=== PATIENT | female | born 1970 | race African-American/Black ===

== ENCOUNTER 2017-02-17 14:07 | Emergency (ER) | payer OTHER ==
[~2017-02-17] VITALS: Ht 160 cm; Wt 113.6 kg
[2017-02-17 14:23] LABS: GLUCOSE,POINT OF CARE 375 MG/DL (70-110)
[2017-02-17] MEDS ORDERED: ACETAMINOPHEN/CODEINE 300-30 MG TABLET PO ONE (15:15)
[2017-02-17 16:17] VITALS: BP 149/87
== END 2017-02-17 16:32 | disposition home or self-care (01) ==
LOC: EMS 14:09
DX: S46.912A Strain of unspecified muscle, fascia and tendon at shoulder and upper arm level, left arm, initial encounter (principal); E11.9 Type 2 diabetes mellitus without complications; E78.00 Pure hypercholesterolemia, unspecified; I10 Essential (primary) hypertension; X58.XXXA Exposure to other specified factors, initial encounter; Y93.89 Activity, other specified; Y92.89 Other specified places as the place of occurrence of the external cause; Y99.8 Other external cause status
CPT/HCPCS: 82962; 93005; 99283

== ENCOUNTER 2017-03-25 19:25 | Emergency (ER) | payer OTHER ==
[~2017-03-25] VITALS: Ht 160 cm; Wt 118.0 kg
[2017-03-25] MEDS ORDERED: LISI-662 PO (19:47)
[2017-03-25] MEDS ORDERED: METF500T4 PO (19:47)
[2017-03-25 19:56] LABS: GLUCOSE,POINT OF CARE 232 MG/DL (70-110)
[2017-03-25 20:11] LABS: ANION GAP 5 mmol/L (8-16); CALCIUM, TOTAL 9.1 mg/dL (8.8-10.5); CARBON DIOXIDE 32 mmol/L (22-29); CHLORIDE 98 mmol/L (98-107); CREATININE 0.96 mg/dL (0.60-1.30); GLOMERULAR FILTR. RATE CALC > 60 mL/min (>60); POTASSIUM 3.5 mmol/L (3.5-5.1); SODIUM SERUM 135 mmol/L (136-145); UREA NITROGEN, BLOOD 13 mg/dL (7-18)
[2017-03-25 20:17] LABS: ALANINE AMINOTRANSFERASE 20 U/L (12-78); ALBUMIN 3.2 g/dL (3.4-5.0); ASPARTATE AMINOTRANSFERASE 20 U/L (15-37); BILIRUBIN,TOTAL 0.2 mg/dL (0.1-1.0); TOTAL PROTEIN, SERUM 6.9 g/dL (6.4-8.2)
[2017-03-25 20:28] LABS: BASOPHILS % (AUTO) 0.6 % (0.0-2.0); EOSINOPHILS % (AUTO) 2.4 % (1.0-6.0); HEMATOCRIT 32.9 % (36-46); HEMOGLOBIN 11.1 g/dL (12.0-16.0); LYMPHOCYTES # (AUTO) 1.7 K/uL (1.0-4.8); LYMPHOCYTES % (AUTO) 22.8 % (22.0-44.0); MEAN CORPUSCULAR HEMOGLOBIN 26.9 pg (26.0-34.0); MEAN CORPUSCULAR HGB CONC 33.7 G/dL (31.0-37.0); MEAN CORPUSCULAR VOLUME 80 fL (80-100); MONOCYTES # (AUTO) 0.3 K/uL (0.1-1.0); MONOCYTES % (AUTO) 4.3 % (2.0-9.0); NEUTROPHILS # (AUTO) 5.1 K/uL (1.8-7.7); NEUTROPHILS % (AUTO) 69.9 % (40.0-70.0); PLATELET COUNT (AUTO) 351 K/uL (150-450); RED BLOOD CELL COUNT(AUTO) 4.13 MIL/uL (4.00-5.20); WHITE BLOOD COUNT (AUTO) 7.3 K/uL (4.5-11.0)
[2017-03-25 20:36] LABS: APPEARANCE,URINE TURBID (CLEAR); GLUCOSE, URINE (UA) 100 mg/dL (NEGATIVE); KETONES,URINE 40 mg/dL (NEGATIVE); LEUKOCYTE ESTERASE ,URINE LARGE (NEGATIVE); OCCULT BLOOD,URINE LARGE (NEGATIVE); PROTEIN,URINE SEE CONFIRM (NEGATIVE)
[2017-03-25 21:09] LABS: ADD UA MICROSCOPIC YES; RBC,URINE Full Field /HPF (0-2); SULFOSALICYLIC ACID,URINE 3+ (Negative)
[2017-03-25 21:10] LABS: WBC,URINE 51-100 /HPF (0-5)
[2017-03-25 21:25] VITALS: BP 144/68
[2017-03-25] MEDS ORDERED: CeFAZolin 1 GM/DEXTROSE 50 ML IV ONE (21:30)
== END 2017-03-25 22:12 | disposition home or self-care (01) ==
LOC: EMS 19:29
DX: N39.0 Urinary tract infection, site not specified (principal); E11.9 Type 2 diabetes mellitus without complications; E78.00 Pure hypercholesterolemia, unspecified; I10 Essential (primary) hypertension
CPT/HCPCS: 82962; 87086; 99284

== ENCOUNTER 2017-04-08 14:58 | Emergency (ER) | payer OTHER ==
[~2017-04-08] VITALS: Ht 160 cm; Wt 113.6 kg
[~2017-04-08 14:58] MED LIST: LISI-662 PO; METF500T4 PO
[2017-04-08 15:22] LABS: GLUCOSE,POINT OF CARE 232 MG/DL (70-110)
[2017-04-08 16:21] VITALS: BP 134/72
[2017-04-08] MEDS ORDERED: KETOROLAC TROMETHAMINE 30 MG/ML VIAL IM ONE (16:30)
== END 2017-04-08 16:54 | disposition home or self-care (01) ==
LOC: EMS 15:03
DX: S46.911A Strain of unspecified muscle, fascia and tendon at shoulder and upper arm level, right arm, initial encounter (principal); S86.911A Strain of unspecified muscle(s) and tendon(s) at lower leg level, right leg, initial encounter; E11.9 Type 2 diabetes mellitus without complications; I10 Essential (primary) hypertension; E78.00 Pure hypercholesterolemia, unspecified; X58.XXXA Exposure to other specified factors, initial encounter; Y93.89 Activity, other specified; Y92.89 Other specified places as the place of occurrence of the external cause; Y99.8 Other external cause status
CPT/HCPCS: 82962; 96372; 99283; J1885

== ENCOUNTER 2017-07-07 22:14 | Emergency (ER) | payer OTHER ==
[~2017-07-07] VITALS: Ht 160 cm; Wt 113.2 kg
[2017-07-07] MEDS ORDERED: METF500T4 PO (22:25)
[2017-07-07] MEDS ORDERED: INSLAN SQ (22:25)
[2017-07-07] MEDS ORDERED: SITA100 PO (22:25)
[2017-07-07] MEDS ORDERED: GLIM2 PO (22:25)
[2017-07-07 22:27] LABS: GLUCOSE,POINT OF CARE 429 MG/DL (70-110)
[2017-07-07 23:03] LABS: EOSINOPHILS % (AUTO) 2.4 % (1.0-6.0); HEMATOCRIT 38.1 % (36-46); HEMOGLOBIN 12.4 g/dL (12.0-16.0); LYMPHOCYTES % (AUTO) 31.8 % (22.0-44.0); MEAN CORPUSCULAR HEMOGLOBIN 25.2 pg (26.0-34.0); MEAN CORPUSCULAR HGB CONC 32.6 G/dL (31.0-37.0); MEAN CORPUSCULAR VOLUME 77 fL (80-100); MONOCYTES # (AUTO) 0.3 K/uL (0.1-1.0); MONOCYTES % (AUTO) 4.9 % (2.0-9.0); NEUTROPHILS # (AUTO) 3.8 K/uL (1.8-7.7); NEUTROPHILS % (AUTO) 59.9 % (40.0-70.0); PLATELET COUNT (AUTO) 347 K/uL (150-450); RED BLOOD CELL COUNT(AUTO) 4.92 MIL/uL (4.00-5.20)
[2017-07-07 23:13] LABS: ALANINE AMINOTRANSFERASE 15 U/L (12-78); ALBUMIN 3.3 g/dL (3.4-5.0); ALKALINE PHOSPHATASE 107 U/L (46-116); ANION GAP 10 mmol/L (8-16); ASPARTATE AMINOTRANSFERASE 19 U/L (15-37); BILIRUBIN,TOTAL 0.2 mg/dL (0.1-1.0); CALCIUM, TOTAL 9.2 mg/dL (8.8-10.5); CARBON DIOXIDE 28 mmol/L (22-29); CHLORIDE 94 mmol/L (98-107); CREATININE 0.95 mg/dL (0.60-1.30); GLOMERULAR FILTR. RATE CALC > 60 mL/min (>60); SODIUM SERUM 132 mmol/L (136-145); TOTAL PROTEIN, SERUM 7.7 g/dL (6.4-8.2); UREA NITROGEN, BLOOD 23 mg/dL (7-18)
[2017-07-07 23:22] LABS: GLUCOSE,RANDOM 409 mg/dL (70-110)
[2017-07-07] MEDS ORDERED: SODIUM CHLORIDE 0.9% 1,000 ML IV ONE (23:45)
[2017-07-07] MEDS ORDERED: INSULIN REGULAR, HUMAN 100 UNITS/ML IVP ONE (23:45)
[2017-07-07] MEDS ORDERED: ONDANSETRON HCL 4 MG/2 ML VIAL IVP ONE (23:45)
[2017-07-07] MEDS ORDERED: KETOROLAC TROMETHAMINE 30 MG/ML VIAL IVP ONE (23:45)
[2017-07-08 01:12] LABS: GLUCOSE,POINT OF CARE 262 MG/DL (70-110)
[2017-07-08 01:27] VITALS: BP 132/89
== END 2017-07-08 01:30 | disposition home or self-care (01) ==
LOC: EMS 22:17
DX: E11.65 Type 2 diabetes mellitus with hyperglycemia (principal); E87.1 Hypo-osmolality and hyponatremia; R19.7 Diarrhea, unspecified; E78.00 Pure hypercholesterolemia, unspecified; I10 Essential (primary) hypertension; Z90.49 Acquired absence of other specified parts of digestive tract; Z91.14 Patient's other noncompliance with medication regimen; Z98.890 Other specified postprocedural states; Z79.4 Long term (current) use of insulin; Z79.899 Other long term (current) drug therapy
CPT/HCPCS: 36415; 80053; 82962; 84703; 85025; 96361; 96374; 96375; 99284; J1815; J1885; J2405; J7030

== ENCOUNTER 2017-08-02 13:31 | Emergency (ER) | payer OTHER ==
[~2017-08-02] VITALS: Ht 160 cm; Wt 117.3 kg
[~2017-08-02 13:31] MED LIST changes: +GLIM2 PO; +INSLAN SQ; +SITA100 PO
[2017-08-02 14:23] LABS: GLUCOSE,POINT OF CARE 278 MG/DL (70-110)
[2017-08-02] MEDS ORDERED: KETOROLAC TROMETHAMINE 30 MG/ML VIAL IVP ONE (14:45)
[2017-08-02] MEDS ORDERED: ONDANSETRON HCL 4 MG/2 ML VIAL IVP ONE (14:45)
[2017-08-02] MEDS ORDERED: SODIUM CHLORIDE 0.9% 1,000 ML IV ONE (14:45)
[2017-08-02 15:24] VITALS: BP 161/98
[2017-08-02 15:32] LABS: BASOPHILS % (AUTO) 0.8 % (0.0-2.0); EOSINOPHILS % (AUTO) 2.5 % (1.0-6.0); HEMATOCRIT 35.4 % (36-46); HEMOGLOBIN 11.4 g/dL (12.0-16.0); LYMPHOCYTES # (AUTO) 1.4 K/uL (1.0-4.8); LYMPHOCYTES % (AUTO) 21.8 % (22.0-44.0); MEAN CORPUSCULAR HEMOGLOBIN 25.5 pg (26.0-34.0); MEAN CORPUSCULAR HGB CONC 32.2 G/dL (31.0-37.0); MEAN CORPUSCULAR VOLUME 79 fL (80-100); MONOCYTES # (AUTO) 0.3 K/uL (0.1-1.0); MONOCYTES % (AUTO) 4.8 % (2.0-9.0); NEUTROPHILS # (AUTO) 4.6 K/uL (1.8-7.7); NEUTROPHILS % (AUTO) 70.1 % (40.0-70.0); PLATELET COUNT (AUTO) 343 K/uL (150-450); RED BLOOD CELL COUNT(AUTO) 4.47 MIL/uL (4.00-5.20); RED CELL DISTRIBUTION WIDTH 18.8 % (11.5-14.5)
[2017-08-02 15:52] LABS: ANION GAP 10 mmol/L (8-16); CALCIUM, TOTAL 8.4 mg/dL (8.8-10.5); CARBON DIOXIDE 27 mmol/L (22-29); CHLORIDE 105 mmol/L (98-107); CREATININE 0.92 mg/dL (0.60-1.30); GLOMERULAR FILTR. RATE CALC > 60 mL/min (>60); GLUCOSE,RANDOM 278 mg/dL (70-110); POTASSIUM 3.7 mmol/L (3.5-5.1); SODIUM SERUM 142 mmol/L (136-145); UREA NITROGEN, BLOOD 14 mg/dL (7-18)
[2017-08-02 15:53] LABS: ALANINE AMINOTRANSFERASE 20 U/L (12-78); ALBUMIN 2.9 g/dL (3.4-5.0); ALKALINE PHOSPHATASE 81 U/L (46-116); ASPARTATE AMINOTRANSFERASE 19 U/L (15-37); BILIRUBIN,TOTAL 0.2 mg/dL (0.1-1.0); TOTAL PROTEIN, SERUM 6.5 g/dL (6.4-8.2)
== END 2017-08-02 16:54 | disposition home or self-care (01) ==
LOC: EMS 13:32
DX: N94.6 Dysmenorrhea, unspecified (principal); E11.9 Type 2 diabetes mellitus without complications; E78.00 Pure hypercholesterolemia, unspecified; I10 Essential (primary) hypertension; Z79.4 Long term (current) use of insulin
CPT/HCPCS: 36415; 80053; 82962; 83690; 84703; 85025; 96374; 96375; 99284; J1885; J2405; J7030

== ENCOUNTER 2017-08-21 18:39 | Emergency (ER) | payer OTHER ==
[~2017-08-21] VITALS: Ht 160 cm; Wt 112.3 kg
[2017-08-21 19:02] LABS: GLUCOSE,POINT OF CARE 149 MG/DL (70-110)
[2017-08-21] MEDS ORDERED: CYCLOBENZAPRINE HCL 10 MG TABLET PO ONE (19:45)
[2017-08-21] MEDS ORDERED: KETOROLAC TROMETHAMINE 60 MG/2 ML VIAL IM ONE (19:45)
[2017-08-21 20:38] VITALS: BP 144/90
== END 2017-08-21 20:41 | disposition home or self-care (01) ==
LOC: EMS 18:40
DX: S46.812A Strain of other muscles, fascia and tendons at shoulder and upper arm level, left arm, initial encounter (principal); I10 Essential (primary) hypertension; E11.9 Type 2 diabetes mellitus without complications; E78.00 Pure hypercholesterolemia, unspecified; X58.XXXA Exposure to other specified factors, initial encounter; Y93.89 Activity, other specified; Y92.89 Other specified places as the place of occurrence of the external cause; Y99.8 Other external cause status
CPT/HCPCS: 82962; 96372; 99283; J1885

== ENCOUNTER 2017-09-20 10:22 | Emergency (ER) | payer OTHER ==
[~2017-09-20] VITALS: Ht 160 cm; Wt 113.6 kg
[~2017-09-20 10:22] MED LIST changes: -METF500T4 PO; +METF500T6 PO
[2017-09-20 10:33] LABS: GLUCOSE,POINT OF CARE 397 MG/DL (70-110)
[2017-09-20 11:51] LABS: BASOPHILS % (AUTO) 0.7 % (0.0-2.0); EOSINOPHILS % (AUTO) 2.4 % (1.0-6.0); HEMATOCRIT 38.6 % (36-46); HEMOGLOBIN 12.6 g/dL (12.0-16.0); LYMPHOCYTES # (AUTO) 1.3 K/uL (1.0-4.8); LYMPHOCYTES % (AUTO) 22.2 % (22.0-44.0); MEAN CORPUSCULAR HEMOGLOBIN 26.2 pg (26.0-34.0); MEAN CORPUSCULAR HGB CONC 32.7 G/dL (31.0-37.0); MEAN CORPUSCULAR VOLUME 80 fL (80-100); MONOCYTES # (AUTO) 0.3 K/uL (0.1-1.0); MONOCYTES % (AUTO) 4.6 % (2.0-9.0); NEUTROPHILS # (AUTO) 4.2 K/uL (1.8-7.7); NEUTROPHILS % (AUTO) 70.1 % (40.0-70.0); PLATELET COUNT (AUTO) 301 K/uL (150-450); RED BLOOD CELL COUNT(AUTO) 4.82 MIL/uL (4.00-5.20); RED CELL DISTRIBUTION WIDTH 16.5 % (11.5-14.5)
[2017-09-20] MEDS ORDERED: SODIUM CHLORIDE 0.9% 1,000 ML IV ONE (12:00)
[2017-09-20 12:04] LABS: ANION GAP 8 mmol/L (8-16); CARBON DIOXIDE 29 mmol/L (22-29); CHLORIDE 100 mmol/L (98-107); POTASSIUM 5.1 mmol/L (3.5-5.1); SODIUM SERUM 137 mmol/L (136-145); UREA NITROGEN, BLOOD 11 mg/dL (7-18)
[2017-09-20 12:05] LABS: ALANINE AMINOTRANSFERASE 20 U/L (12-78); ALBUMIN 3.1 g/dL (3.4-5.0); ALKALINE PHOSPHATASE 118 U/L (46-116); ASPARTATE AMINOTRANSFERASE 33 U/L (15-37); BILIRUBIN,TOTAL 0.3 mg/dL (0.1-1.0); CALCIUM, TOTAL 8.7 mg/dL (8.8-10.5); GLOMERULAR FILTR. RATE CALC > 60 mL/min (>60); TOTAL PROTEIN, SERUM 7.4 g/dL (6.4-8.2)
[2017-09-20 12:08] LABS: GLUCOSE,RANDOM 408 mg/dL (70-110)
[2017-09-20 12:20] LABS: BILIRUBIN,URINE NEGATIVE (NEGATIVE); GLUCOSE, URINE (UA) >=1000 mg/dL (NEGATIVE); KETONES,URINE NEGATIVE (NEGATIVE); LEUKOCYTE ESTERASE ,URINE NEGATIVE (NEGATIVE); NITRATE,URINE NEGATIVE (NEGATIVE); PH,URINE 5.5 (5.0-8.0); PROTEIN,URINE NEGATIVE (NEGATIVE); UROBILINOGEN,URINE 0.2 mg/dL (<=1.0)
[2017-09-20 12:28] LABS: APPEARANCE,URINE HAZY (CLEAR); OCCULT BLOOD,URINE SMALL (NEGATIVE)
[2017-09-20 12:29] LABS: BACTERIA,URINE Moderate /HPF (None Seen); SQUAMOUS EPITHELIAL CELL,UR Moderate /LPF (None Seen); WBC,URINE 0-2 /HPF (0-5)
[2017-09-20] MEDS ORDERED: INSULIN REGULAR, HUMAN 100 UNITS/ML IVP ONE (12:30)
[2017-09-20] MEDS ORDERED: CIPROFLOXACIN HCL 250 MG TABLET PO ONE (12:45)
[2017-09-20 13:07] LABS: GLUCOSE,POINT OF CARE 202 MG/DL (70-110)
[2017-09-20 14:17] VITALS: BP 177/94
== END 2017-09-20 14:52 | disposition home or self-care (01) ==
LOC: EMS 10:24
DX: N39.0 Urinary tract infection, site not specified (principal); N89.8 Other specified noninflammatory disorders of vagina; E11.65 Type 2 diabetes mellitus with hyperglycemia; E78.00 Pure hypercholesterolemia, unspecified; I10 Essential (primary) hypertension; Z79.4 Long term (current) use of insulin
CPT/HCPCS: 36415; 80053; 81001; 82962; 84703; 85025; 87077; 87086; 87186; 96361; 96374; 99284; J1815; J7030

== ENCOUNTER 2017-10-29 00:30 | Emergency (ER) | payer OTHER ==
[~2017-10-29] VITALS: Ht 157.5 cm; Wt 115.0 kg
[2017-10-29 00:48] LABS: GLUCOSE,POINT OF CARE 207 MG/DL (70-110)
[2017-10-29 01:24] LABS: EOSINOPHILS % (AUTO) 2.4 % (1.0-6.0); HEMATOCRIT 36.9 % (36-46); HEMOGLOBIN 12.1 g/dL (12.0-16.0); LYMPHOCYTES # (AUTO) 1.7 K/uL (1.0-4.8); LYMPHOCYTES % (AUTO) 22.4 % (22.0-44.0); MEAN CORPUSCULAR HEMOGLOBIN 26.1 pg (26.0-34.0); MEAN CORPUSCULAR HGB CONC 32.8 G/dL (31.0-37.0); MEAN CORPUSCULAR VOLUME 80 fL (80-100); MONOCYTES # (AUTO) 0.4 K/uL (0.1-1.0); MONOCYTES % (AUTO) 4.9 % (2.0-9.0); NEUTROPHILS # (AUTO) 5.1 K/uL (1.8-7.7); NEUTROPHILS % (AUTO) 69.3 % (40.0-70.0); PLATELET COUNT (AUTO) 363 K/uL (150-450); RED BLOOD CELL COUNT(AUTO) 4.63 MIL/uL (4.00-5.20); RED CELL DISTRIBUTION WIDTH 15.9 % (11.5-14.5)
[2017-10-29 01:27] LABS: ANION GAP 6 mmol/L (8-16); CALCIUM, TOTAL 8.7 mg/dL (8.8-10.5); CARBON DIOXIDE 31 mmol/L (22-29); CHLORIDE 101 mmol/L (98-107); CREATININE 0.94 mg/dL (0.60-1.30); GLOMERULAR FILTR. RATE CALC > 60 mL/min (>60); GLUCOSE,RANDOM 235 mg/dL (70-110); POTASSIUM 3.6 mmol/L (3.5-5.1); SODIUM SERUM 138 mmol/L (136-145); UREA NITROGEN, BLOOD 12 mg/dL (7-18)
[2017-10-29 01:34] LABS: ALANINE AMINOTRANSFERASE 16 U/L (12-78); ALBUMIN 3.3 g/dL (3.4-5.0); ALKALINE PHOSPHATASE 103 U/L (46-116); ASPARTATE AMINOTRANSFERASE 12 U/L (15-37); BILIRUBIN,TOTAL 0.2 mg/dL (0.1-1.0); LIPASE 234 U/L (73-393); TOTAL PROTEIN, SERUM 7.2 g/dL (6.4-8.2)
[2017-10-29 01:37] LABS: APPEARANCE,URINE CLOUDY (CLEAR); BILIRUBIN,URINE NEGATIVE (NEGATIVE); GLUCOSE, URINE (UA) 250 mg/dL (NEGATIVE); KETONES,URINE TRACE mg/dL (NEGATIVE); LEUKOCYTE ESTERASE ,URINE NEGATIVE (NEGATIVE); NITRATE,URINE NEGATIVE (NEGATIVE); OCCULT BLOOD,URINE LARGE (NEGATIVE); PROTEIN,URINE POS 1+ (NEGATIVE); UROBILINOGEN,URINE 0.2 mg/dL (<=1.0)
[2017-10-29 01:50] LABS: BACTERIA,URINE Rare /HPF (None Seen); SQUAMOUS EPITHELIAL CELL,UR Few /LPF (None Seen); WBC,URINE 0-2 /HPF (0-5)
[2017-10-29 03:24] LABS: GLUCOSE,POINT OF CARE 239 MG/DL (70-110)
[2017-10-29] MEDS ORDERED: KETOROLAC TROMETHAMINE 60 MG/2 ML VIAL IM ONE (03:45)
[2017-10-29] MEDS ORDERED: CIPROFLOXACIN HCL 250 MG TABLET PO ONE (03:45)
[2017-10-29] MEDS ORDERED: ONDANSETRON HCL 4 MG TABLET PO ONE (03:45)
[2017-10-29 04:14] VITALS: BP 121/78
== END 2017-10-29 04:20 | disposition home or self-care (01) ==
LOC: EMS 00:32
DX: N39.0 Urinary tract infection, site not specified (principal); I10 Essential (primary) hypertension; E78.00 Pure hypercholesterolemia, unspecified; E11.9 Type 2 diabetes mellitus without complications
CPT/HCPCS: 36415; 80053; 81001; 82962; 83690; 85025; 96372; 99284; J1885; Q0162

== ENCOUNTER 2017-10-30 10:28 | Emergency (ER) | payer OTHER ==
[~2017-10-30] VITALS: Ht 157.5 cm; Wt 113.6 kg
[2017-10-30 10:36] VITALS: BP 163/89
[2017-10-30 10:49] LABS: GLUCOSE,POINT OF CARE 285 MG/DL (70-110)
[2017-10-30 11:20] LABS: BASOPHILS % (AUTO) 0.3 % (0.0-2.0); EOSINOPHILS % (AUTO) 1.9 % (1.0-6.0); HEMATOCRIT 36.9 % (36-46); LYMPHOCYTES # (AUTO) 1.4 K/uL (1.0-4.8); LYMPHOCYTES % (AUTO) 18.4 % (22.0-44.0); MEAN CORPUSCULAR HGB CONC 32.6 G/dL (31.0-37.0); MEAN CORPUSCULAR VOLUME 80 fL (80-100); MONOCYTES # (AUTO) 0.4 K/uL (0.1-1.0); MONOCYTES % (AUTO) 4.6 % (2.0-9.0); NEUTROPHILS # (AUTO) 5.8 K/uL (1.8-7.7); NEUTROPHILS % (AUTO) 74.8 % (40.0-70.0); PLATELET COUNT (AUTO) 343 K/uL (150-450); RED BLOOD CELL COUNT(AUTO) 4.64 MIL/uL (4.00-5.20)
[2017-10-30 11:36] LABS: ANION GAP 10 mmol/L (8-16); CALCIUM, TOTAL 9.5 mg/dL (8.8-10.5); CARBON DIOXIDE 24 mmol/L (22-29); CHLORIDE 107 mmol/L (98-107); CREATININE 0.97 mg/dL (0.60-1.30); GLOMERULAR FILTR. RATE CALC > 60 mL/min (>60); GLUCOSE,RANDOM 288 mg/dL (70-110); POTASSIUM 3.6 mmol/L (3.5-5.1); SODIUM SERUM 141 mmol/L (136-145); UREA NITROGEN, BLOOD 12 mg/dL (7-18)
[2017-10-30 11:41] LABS: ALANINE AMINOTRANSFERASE 23 U/L (12-78); ALKALINE PHOSPHATASE 111 U/L (46-116); ASPARTATE AMINOTRANSFERASE 13 U/L (15-37); BILIRUBIN,TOTAL 0.2 mg/dL (0.1-1.0); LIPASE 152 U/L (73-393)
[2017-10-30] MEDS ORDERED: SODIUM CHLORIDE 0.9% 1,000 ML IV ONE (13:15)
[2017-10-30] MEDS ORDERED: ONDANSETRON HCL 4 MG/2 ML VIAL IVP ONE (13:15)
[2017-10-30] MEDS ORDERED: KETOROLAC TROMETHAMINE 30 MG/ML VIAL IVP ONE (13:15)
== END 2017-10-30 16:23 | disposition home or self-care (01) ==
LOC: EMS 10:32
DX: K59.00 Constipation, unspecified (principal); N83.201 Unspecified ovarian cyst, right side; N83.202 Unspecified ovarian cyst, left side; E11.9 Type 2 diabetes mellitus without complications; E78.00 Pure hypercholesterolemia, unspecified; I10 Essential (primary) hypertension; Z79.4 Long term (current) use of insulin
CPT/HCPCS: 36415; 74176; 76856; 80053; 82962; 83690; 84703; 85025; 96361; 96374; 96375; 99285; J1885; J2405; J7030

== ENCOUNTER 2017-12-17 08:34 | Emergency (ER) | payer OTHER ==
[~2017-12-17] VITALS: Ht 157.5 cm; Wt 113.6 kg
[2017-12-17 08:39] VITALS: BP 143/81
[2017-12-17 08:51] LABS: GLUCOSE,POINT OF CARE 117 MG/DL (70-110)
== END 2017-12-17 09:42 | disposition home or self-care (01) ==
LOC: EMS 08:35
DX: L03.213 Periorbital cellulitis (principal); I10 Essential (primary) hypertension; E78.00 Pure hypercholesterolemia, unspecified; E11.9 Type 2 diabetes mellitus without complications; Z79.4 Long term (current) use of insulin
CPT/HCPCS: 99283

== ENCOUNTER 2017-12-24 12:15 | Emergency (ER) | payer OTHER ==
[~2017-12-24] VITALS: Ht 157.5 cm; Wt 90.9 kg
[~2017-12-24 12:15] MED LIST changes: +METF-960 PO; -METF500T6 PO
[2017-12-24 12:29] LABS: GLUCOSE,POINT OF CARE 165 MG/DL (70-110)
[2017-12-24] MEDS ORDERED: METHOCARBAMOL 500 MG TABLET PO ONE (14:15)
[2017-12-24] MEDS ORDERED: KETOROLAC TROMETHAMINE 10 MG TABLET PO ONE (14:15)
[2017-12-24 14:49] VITALS: BP 142/85
== END 2017-12-24 14:51 | disposition home or self-care (01) ==
LOC: EMS 12:17
DX: M54.5 Low back pain (principal); M25.561 Pain in right knee; G89.29 Other chronic pain; E11.9 Type 2 diabetes mellitus without complications; E78.00 Pure hypercholesterolemia, unspecified; I10 Essential (primary) hypertension; Z90.49 Acquired absence of other specified parts of digestive tract; Z79.4 Long term (current) use of insulin; Z79.899 Other long term (current) drug therapy
CPT/HCPCS: 99283

== ENCOUNTER 2018-03-08 09:55 | Emergency (ER) | payer OTHER ==
[~2018-03-08] VITALS: Ht 157.5 cm; Wt 90.9 kg
[2018-03-08 10:01] VITALS: BP 147/81
[2018-03-08] MEDS: IBUPROFEN 600 MG TABLET PO ONE (11:57)
== END 2018-03-08 12:10 | disposition home or self-care (01) ==
LOC: EMS 09:56
DX: H66.92 Otitis media, unspecified, left ear (principal); E11.9 Type 2 diabetes mellitus without complications; E78.00 Pure hypercholesterolemia, unspecified; I10 Essential (primary) hypertension; Z90.49 Acquired absence of other specified parts of digestive tract; Z79.4 Long term (current) use of insulin; Z79.899 Other long term (current) drug therapy; Z79.84 Long term (current) use of oral hypoglycemic drugs

== ENCOUNTER 2018-05-06 13:23 | Emergency (ER) | payer OTHER ==
[~2018-05-06] VITALS: Ht 160 cm; Wt 113.6 kg
[2018-05-06 13:39] LABS: GLUCOSE,POINT OF CARE 210 MG/DL (70-110)
[2018-05-06 15:54] VITALS: BP 138/70
== END 2018-05-06 16:07 | disposition home or self-care (01) ==
LOC: EMS 13:24
DX: M25.561 Pain in right knee (principal); M25.562 Pain in left knee; I10 Essential (primary) hypertension; E11.9 Type 2 diabetes mellitus without complications; E78.00 Pure hypercholesterolemia, unspecified; Z90.49 Acquired absence of other specified parts of digestive tract; Z79.4 Long term (current) use of insulin; Z79.84 Long term (current) use of oral hypoglycemic drugs; Z79.899 Other long term (current) drug therapy
CPT/HCPCS: 29505

== ENCOUNTER 2018-07-29 22:49 | Emergency (ER) | payer OTHER ==
[~2018-07-29] VITALS: Ht 160 cm; Wt 110.9 kg
[2018-07-29 23:04] LABS: GLUCOSE,POINT OF CARE 128 MG/DL (70-110)
[2018-07-29 23:39] LABS: APPEARANCE,URINE CLEAR (CLEAR); BILIRUBIN,URINE NEGATIVE (NEGATIVE); GLUCOSE, URINE (UA) >=1000 mg/dL (NEGATIVE); KETONES,URINE NEGATIVE (NEGATIVE); LEUKOCYTE ESTERASE ,URINE NEGATIVE (NEGATIVE); NITRATE,URINE NEGATIVE (NEGATIVE); OCCULT BLOOD,URINE NEGATIVE (NEGATIVE); PH,URINE 5.5 (5.0-8.0); PROTEIN,URINE NEGATIVE (NEGATIVE); UROBILINOGEN,URINE 0.2 mg/dL (<=1.0)
[2018-07-29 23:44] LABS: BACTERIA,URINE Rare /HPF (None Seen); RBC,URINE None Seen /HPF (0-2); SQUAMOUS EPITHELIAL CELL,UR Moderate /LPF (None Seen); WBC,URINE 0-2 /HPF (0-5)
[2018-07-30 02:22] VITALS: BP 130/68
== END 2018-07-30 02:28 | disposition home or self-care (01) ==
LOC: EMS 22:50
DX: G47.62 Sleep related leg cramps (principal); M79.89 Other specified soft tissue disorders; E11.9 Type 2 diabetes mellitus without complications; E78.00 Pure hypercholesterolemia, unspecified; I10 Essential (primary) hypertension; Z90.710 Acquired absence of both cervix and uterus; Z79.899 Other long term (current) drug therapy; Z79.4 Long term (current) use of insulin
CPT/HCPCS: 85379

== ENCOUNTER 2018-10-31 18:16 | Emergency (ER) | payer OTHER ==
[~2018-10-31] VITALS: Ht 157.5 cm; Wt 113.6 kg
[2018-10-31] MEDS ORDERED: GLIP5 PO (18:23)
[2018-10-31 18:29] LABS: GLUCOSE,POINT OF CARE 148 MG/DL (70-110)
[2018-10-31 19:15] LABS: BASOPHILS % (AUTO) 1.5 % (0.0-2.0); EOSINOPHILS % (AUTO) 2.2 % (1.0-6.0); HEMATOCRIT 26.3 % (36-46); HEMOGLOBIN 8.2 g/dL (12.0-16.0); LYMPHOCYTES # (AUTO) 1.8 K/uL (1.0-4.8); LYMPHOCYTES % (AUTO) 22.1 % (22.0-44.0); MEAN CORPUSCULAR HEMOGLOBIN 25.6 pg (26.0-34.0); MEAN CORPUSCULAR HGB CONC 31.3 G/dL (31.0-37.0); MEAN CORPUSCULAR VOLUME 82 fL (80-100); MONOCYTES # (AUTO) 0.4 K/uL (0.1-1.0); MONOCYTES % (AUTO) 4.6 % (2.0-9.0); NEUTROPHILS # (AUTO) 5.7 K/uL (1.8-7.7); NEUTROPHILS % (AUTO) 69.6 % (40.0-70.0); PLATELET COUNT (AUTO) 371 K/uL (150-450); RED BLOOD CELL COUNT(AUTO) 3.22 MIL/uL (4.00-5.20); RED CELL DISTRIBUTION WIDTH 17.1 % (11.5-14.5)
[2018-10-31 19:19] LABS: ANION GAP 10 mmol/L (8-16); CALCIUM, TOTAL 9.7 mg/dL (8.8-10.5); CARBON DIOXIDE 29 mmol/L (22-29); CHLORIDE 102 mmol/L (98-107); CREATININE 0.98 mg/dL (0.60-1.30); GLOMERULAR FILTR. RATE CALC > 60 mL/min (>60); GLUCOSE,RANDOM 184 mg/dL (70-110); POTASSIUM 3.8 mmol/L (3.5-5.1); SODIUM SERUM 141 mmol/L (136-145); UREA NITROGEN, BLOOD 14 mg/dL (7-18)
[2018-10-31 19:39] LABS: ALANINE AMINOTRANSFERASE 12 U/L (12-78); ALBUMIN 2.9 g/dL (3.4-5.0); ALKALINE PHOSPHATASE 98 U/L (46-116); ASPARTATE AMINOTRANSFERASE 14 U/L (15-37); BILIRUBIN,TOTAL 0.2 mg/dL (0.1-1.0); HCG,QUANTITATIVE < 1 mIU/mL (0-6); TOTAL PROTEIN, SERUM 6.8 g/dL (6.4-8.2)
[2018-10-31] MEDS ORDERED: MedroxyPROGESTERone ACET 5 MG TABLET PO ONE (22:00)
[2018-10-31 22:21] VITALS: BP 140/80
== END 2018-10-31 22:22 | disposition home or self-care (01) ==
LOC: EMS 18:16
DX: N93.8 Other specified abnormal uterine and vaginal bleeding (principal); I10 Essential (primary) hypertension; E78.00 Pure hypercholesterolemia, unspecified; E11.9 Type 2 diabetes mellitus without complications; Z88.6 Allergy status to analgesic agent; Z79.84 Long term (current) use of oral hypoglycemic drugs; Z79.899 Other long term (current) drug therapy
CPT/HCPCS: 76856

== ENCOUNTER 2019-11-13 09:56 | Emergency (ER) | payer OTHER ==
[~2019-11-13] VITALS: Ht 157.5 cm; Wt 113.6 kg
[~2019-11-13 09:56] MED LIST changes: -GLIM2 PO; +GLIP5 PO
[2019-11-13 10:39] LABS: BASOPHILS % (AUTO) 0.6 % (0.0-2.0); HEMATOCRIT 36.9 % (36-46); HEMOGLOBIN 11.6 g/dL (12.0-16.0); LYMPHOCYTES # (AUTO) 1.2 K/uL (1.0-4.8); MEAN CORPUSCULAR HEMOGLOBIN 23.3 pg (26.0-34.0); MEAN CORPUSCULAR HGB CONC 31.5 G/dL (31.0-37.0); MEAN CORPUSCULAR VOLUME 74 fL (80-100); MONOCYTES # (AUTO) 0.3 K/uL (0.1-1.0); MONOCYTES % (AUTO) 4.3 % (2.0-9.0); NEUTROPHILS # (AUTO) 4.6 K/uL (1.8-7.7); NEUTROPHILS % (AUTO) 74.1 % (40.0-70.0); PLATELET COUNT (AUTO) 337 K/uL (150-450); RED BLOOD CELL COUNT(AUTO) 4.98 MIL/uL (4.00-5.20); RED CELL DISTRIBUTION WIDTH 18.8 % (11.5-14.5)
[2019-11-13 10:48] LABS: ANION GAP 4 mmol/L (8-16); CALCIUM, TOTAL 9.1 mg/dL (8.8-10.5); CARBON DIOXIDE 33 mmol/L (22-29); CHLORIDE 103 mmol/L (98-107); CREATININE 0.97 mg/dL (0.60-1.30); GLOMERULAR FILTR. RATE CALC > 60 mL/min (>60); GLUCOSE,RANDOM 276 mg/dL (70-110); SODIUM SERUM 140 mmol/L (136-145); UREA NITROGEN, BLOOD 10 mg/dL (7-18)
[2019-11-13 11:02] LABS: ALANINE AMINOTRANSFERASE 16 U/L (12-78); ALKALINE PHOSPHATASE 105 U/L (46-116); ASPARTATE AMINOTRANSFERASE 16 U/L (15-37); BILIRUBIN,TOTAL 0.2 mg/dL (0.1-1.0); HCG,QUANTITATIVE < 1 mIU/mL (0-6); LIPASE 114 U/L (73-393); TOTAL PROTEIN, SERUM 7.5 g/dL (6.4-8.2)
[2019-11-13] MEDS ORDERED: IOVERSOL 350 MG/ML 100 ML VIAL ONE (11:09)
[2019-11-13] MEDS ORDERED: SODIUM CHLORIDE 0.9% 0 ML ONE (11:09)
[2019-11-13] MEDS ORDERED: ACETAMINOPHEN 325 MG TABLET PO ONE (11:15)
[2019-11-13 11:32] LABS: APPEARANCE,URINE TURBID (CLEAR); GLUCOSE, URINE (UA) 250 mg/dL (NEGATIVE); KETONES,URINE 40 mg/dL (NEGATIVE); OCCULT BLOOD,URINE LARGE (NEGATIVE); PROTEIN,URINE SEE CONFIRM (NEGATIVE)
[2019-11-13 11:49] LABS: BILIRUBIN,URINE PRELIM. POSITIVE (NEGATIVE)
[2019-11-13 11:53] LABS: NITRATE,URINE NEGATIVE (NEGATIVE)
[2019-11-13 11:54] LABS: LEUKOCYTE ESTERASE ,URINE NEGATIVE (NEGATIVE)
[2019-11-13 11:55] LABS: BACTERIA,URINE None Seen /HPF (None Seen); RBC,URINE Full Field /HPF (0-2); SULFOSALICYLIC ACID,URINE 3+ (Negative); WBC,URINE None Seen /HPF (0-5)
[2019-11-13 13:10] VITALS: BP 161/73
== END 2019-11-13 13:28 | disposition home or self-care (01) ==
LOC: EMS 09:59
DX: Z03.818 Encounter for observation for suspected exposure to other biological agents ruled out (principal); N93.8 Other specified abnormal uterine and vaginal bleeding; R19.7 Diarrhea, unspecified; E11.9 Type 2 diabetes mellitus without complications; E78.00 Pure hypercholesterolemia, unspecified; I10 Essential (primary) hypertension; Z90.89 Acquired absence of other organs; Z79.84 Long term (current) use of oral hypoglycemic drugs; Z79.899 Other long term (current) drug therapy; Z79.4 Long term (current) use of insulin; Z88.6 Allergy status to analgesic agent
CPT/HCPCS: 36415; 80053; 81001; 82962; 83690; 84702; 85025; 99283; U0003; J7050

== ENCOUNTER 2020-05-26 21:18 | Emergency (ER) | payer OTHER ==
[~2020-05-26] VITALS: Ht 157.5 cm; Wt 118.2 kg
[~2020-05-26 21:18] MED LIST changes: -LISI-662 PO; +LISI-894 PO
[2020-05-26 21:39] LABS: GLUCOSE,POINT OF CARE 130 MG/DL (70-110)
[2020-05-26 23:04] LABS: BASOPHILS % (AUTO) 0.7 % (0.0-2.0); EOSINOPHILS % (AUTO) 2.9 % (1.0-6.0); HEMATOCRIT 34.8 % (36-46); HEMOGLOBIN 11.1 g/dL (12.0-16.0); LYMPHOCYTES # (AUTO) 1.8 K/uL (1.0-4.8); LYMPHOCYTES % (AUTO) 26.4 % (22.0-44.0); MEAN CORPUSCULAR HEMOGLOBIN 25.3 pg (26.0-34.0); MEAN CORPUSCULAR HGB CONC 31.8 G/dL (31.0-37.0); MEAN CORPUSCULAR VOLUME 79 fL (80-100); MONOCYTES # (AUTO) 0.4 K/uL (0.1-1.0); MONOCYTES % (AUTO) 5.8 % (2.0-9.0); NEUTROPHILS # (AUTO) 4.5 K/uL (1.8-7.7); NEUTROPHILS % (AUTO) 64.2 % (40.0-70.0); PLATELET COUNT (AUTO) 334 K/uL (150-450); RED BLOOD CELL COUNT(AUTO) 4.38 MIL/uL (4.00-5.20); RED CELL DISTRIBUTION WIDTH 18.9 % (11.5-14.5)
[2020-05-26 23:20] LABS: PROTHROMBIN TIME 10.7 SEC (9.4-11.6)
[2020-05-26 23:23] LABS: ANION GAP 6 mmol/L (8-16); CALCIUM, TOTAL 8.8 mg/dL (8.8-10.5); CARBON DIOXIDE 28 mmol/L (22-29); CHLORIDE 105 mmol/L (98-107); CREATININE 0.76 mg/dL (0.60-1.30); GLOMERULAR FILTR. RATE CALC > 60 mL/min (>60); GLUCOSE,RANDOM 129 mg/dL (70-110); SODIUM SERUM 139 mmol/L (136-145); UREA NITROGEN, BLOOD 13 mg/dL (7-18)
[2020-05-26 23:36] LABS: ALANINE AMINOTRANSFERASE 18 U/L (12-78); ALBUMIN 3.2 g/dL (3.4-5.0); ALKALINE PHOSPHATASE 93 U/L (46-116); ASPARTATE AMINOTRANSFERASE 15 U/L (15-37); BILIRUBIN,TOTAL 0.2 mg/dL (0.1-1.0); HCG,QUANTITATIVE < 1 mIU/mL (0-6); TOTAL PROTEIN, SERUM 7.1 g/dL (6.4-8.2)
[2020-05-27] MEDS ORDERED: ESTROGENS,CONJUGATED 25 MG/VIAL IM ONE
[2020-05-27 00:35] VITALS: BP 145/80
== END 2020-05-27 01:06 | disposition home or self-care (01) ==
LOC: EMS 21:18
DX: N93.8 Other specified abnormal uterine and vaginal bleeding (principal); D25.9 Leiomyoma of uterus, unspecified; E11.9 Type 2 diabetes mellitus without complications; E78.00 Pure hypercholesterolemia, unspecified; I10 Essential (primary) hypertension; Z90.89 Acquired absence of other organs; Z88.6 Allergy status to analgesic agent; Z79.84 Long term (current) use of oral hypoglycemic drugs; Z79.899 Other long term (current) drug therapy
CPT/HCPCS: 76856; 96372; 99284

== ENCOUNTER 2020-07-30 17:45 | Emergency (ER) | payer OTHER ==
[~2020-07-30] VITALS: Ht 157.5 cm; Wt 124.5 kg
[2020-07-30 18:18] LABS: BASOPHILS % (AUTO) 1.1 % (0.0-2.0); EOSINOPHILS % (AUTO) 2.1 % (1.0-6.0); HEMATOCRIT 38.9 % (36-46); HEMOGLOBIN 12.6 g/dL (12.0-16.0); LYMPHOCYTES % (AUTO) 24.3 % (22.0-44.0); MEAN CORPUSCULAR HEMOGLOBIN 26.1 pg (26.0-34.0); MEAN CORPUSCULAR HGB CONC 32.3 G/dL (31.0-37.0); MEAN CORPUSCULAR VOLUME 81 fL (80-100); MONOCYTES # (AUTO) 0.4 K/uL (0.1-1.0); MONOCYTES % (AUTO) 5.4 % (2.0-9.0); NEUTROPHILS # (AUTO) 5.5 K/uL (1.8-7.7); NEUTROPHILS % (AUTO) 67.1 % (40.0-70.0); PLATELET COUNT (AUTO) 314 K/uL (150-450); RED BLOOD CELL COUNT(AUTO) 4.82 MIL/uL (4.00-5.20)
[2020-07-30 18:28] LABS: ANION GAP 3 mmol/L (8-16); CALCIUM, TOTAL 9.3 mg/dL (8.8-10.5); CARBON DIOXIDE 26 mmol/L (22-29); CHLORIDE 102 mmol/L (98-107); CREATININE 0.93 mg/dL (0.60-1.30); GLOMERULAR FILTR. RATE CALC > 60 mL/min (>60); GLUCOSE,RANDOM 342 mg/dL (70-110); POTASSIUM 3.4 mmol/L (3.5-5.1); SODIUM SERUM 131 mmol/L (136-145); UREA NITROGEN, BLOOD 13 mg/dL (7-18)
[2020-07-30 18:40] LABS: ALANINE AMINOTRANSFERASE 14 U/L (12-78); ALBUMIN 3.2 g/dL (3.4-5.0); ALKALINE PHOSPHATASE 97 U/L (46-116); ASPARTATE AMINOTRANSFERASE 9 U/L (15-37); BILIRUBIN,TOTAL 0.2 mg/dL (0.1-1.0); HCG,QUANTITATIVE < 1 mIU/mL (0-6); TOTAL PROTEIN, SERUM 7.4 g/dL (6.4-8.2)
[2020-07-30 19:00] LABS: APPEARANCE,URINE CLOUDY (CLEAR); BILIRUBIN,URINE NEGATIVE (NEGATIVE); GLUCOSE, URINE (UA) >=1000 mg/dL (NEGATIVE); KETONES,URINE NEGATIVE (NEGATIVE); LEUKOCYTE ESTERASE ,URINE SMALL (NEGATIVE); NITRATE,URINE NEGATIVE (NEGATIVE); OCCULT BLOOD,URINE LARGE (NEGATIVE); PH,URINE 5.5 (5.0-8.0); PROTEIN,URINE NEGATIVE (NEGATIVE); UROBILINOGEN,URINE 0.2 mg/dL (<=1.0)
[2020-07-30 19:16] LABS: BACTERIA,URINE Few /HPF (None Seen); RBC,URINE 0-2 /HPF (0-2)
[2020-07-30 19:17] LABS: SQUAMOUS EPITHELIAL CELL,UR Moderate /LPF (None Seen)
[2020-07-30 20:30] VITALS: BP 141/86
== END 2020-07-30 20:39 | disposition home or self-care (01) ==
LOC: EMS 17:48
DX: N93.9 Abnormal uterine and vaginal bleeding, unspecified (principal); I10 Essential (primary) hypertension; E11.65 Type 2 diabetes mellitus with hyperglycemia; E78.00 Pure hypercholesterolemia, unspecified; Z88.6 Allergy status to analgesic agent; Z79.899 Other long term (current) drug therapy; Z79.84 Long term (current) use of oral hypoglycemic drugs
CPT/HCPCS: 87086; 99283

== ENCOUNTER 2021-02-04 15:20 | Emergency (ER) | payer MEDICAID, OTHER ==
[~2021-02-04] VITALS: Ht 157.5 cm; Wt 125.0 kg
[~2021-02-04 15:20] MED LIST changes: -GLIP5 PO
[2021-02-04] MEDS ORDERED: ACETAMINOPHEN 325 MG TABLET PO ONE (15:45)
[2021-02-04 16:53] VITALS: BP 163/88
== END 2021-02-04 17:06 | disposition home or self-care (01) ==
LOC: EMS 15:25
DX: S63.601A Unspecified sprain of right thumb, initial encounter (principal); E11.9 Type 2 diabetes mellitus without complications; E78.00 Pure hypercholesterolemia, unspecified; I10 Essential (primary) hypertension; Z90.89 Acquired absence of other organs; Z88.6 Allergy status to analgesic agent; Z79.899 Other long term (current) drug therapy; W23.0XXA Caught, crushed, jammed, or pinched between moving objects, initial encounter; Y93.89 Activity, other specified; Y92.89 Other specified places as the place of occurrence of the external cause; Y99.8 Other external cause status
CPT/HCPCS: 99283

== ENCOUNTER 2021-03-03 19:58 | Emergency (ER) | payer MEDICAID ==
[~2021-03-03] VITALS: Ht 157.5 cm; Wt 113.6 kg
[~2021-03-03 19:58] MED LIST changes: +METF-1211 PO; -METF-960 PO
[2021-03-03 20:18] LABS: GLUCOSE,POINT OF CARE 338 MG/DL (70-110)
[2021-03-03 21:30] LABS: EOSINOPHILS % (AUTO) 1.9 % (1.0-6.0); HEMATOCRIT 41.8 % (36-46); HEMOGLOBIN 13.6 g/dL (12.0-16.0); LYMPHOCYTES # (AUTO) 1.9 K/uL (1.0-4.8); LYMPHOCYTES % (AUTO) 29.2 % (22.0-44.0); MEAN CORPUSCULAR HEMOGLOBIN 26.5 pg (26.0-34.0); MEAN CORPUSCULAR HGB CONC 32.5 G/dL (31.0-37.0); MEAN CORPUSCULAR VOLUME 82 fL (80-100); MONOCYTES # (AUTO) 0.3 K/uL (0.1-1.0); NEUTROPHILS # (AUTO) 4.1 K/uL (1.8-7.7); NEUTROPHILS % (AUTO) 62.9 % (40.0-70.0); PLATELET COUNT (AUTO) 308 K/uL (150-450); RED BLOOD CELL COUNT(AUTO) 5.12 MIL/uL (4.00-5.20); RED CELL DISTRIBUTION WIDTH 16.9 % (11.5-14.5)
[2021-03-03 21:39] LABS: ANION GAP 4 mmol/L (8-16); CALCIUM, TOTAL 9.3 mg/dL (8.8-10.5); CARBON DIOXIDE 30 mmol/L (22-29); CHLORIDE 104 mmol/L (98-107); CREATININE 0.85 mg/dL (0.60-1.30); GLOMERULAR FILTR. RATE CALC > 60 mL/min (>60); GLUCOSE,RANDOM 321 mg/dL (70-110); POTASSIUM 3.8 mmol/L (3.5-5.1); SODIUM SERUM 138 mmol/L (136-145); UREA NITROGEN, BLOOD 9 mg/dL (7-18)
[2021-03-03 21:53] LABS: ALANINE AMINOTRANSFERASE 16 U/L (12-78); ALBUMIN 3.4 g/dL (3.4-5.0); ALKALINE PHOSPHATASE 118 U/L (46-116); ASPARTATE AMINOTRANSFERASE 11 U/L (15-37); BILIRUBIN,TOTAL 0.3 mg/dL (0.1-1.0); HCG,QUANTITATIVE < 1 mIU/mL (0-6); LIPASE 117 U/L (73-393); TOTAL PROTEIN, SERUM 7.7 g/dL (6.4-8.2)
[2021-03-03 22:19] LABS: COVID AG,FIA SOURCE NASOPHARYNGEAL
[2021-03-03] MEDS ORDERED: MAG HYDROX/AL HYDROX/SIMETH 30 ML SUSP UDCUP PO ONE (22:30)
[2021-03-03] MEDS ORDERED: SODIUM CHLORIDE 0.9% 1,000 ML IV ONE (22:30)
[2021-03-03] MEDS ORDERED: FAMOTIDINE 10 MG/ML 2 ML VIAL IVP ONE (22:30)
[2021-03-03] MEDS ORDERED: ACETAMINOPHEN 500 MG TABLET PO ONE (22:30)
[2021-03-03] MEDS ORDERED: ONDANSETRON HCL 4 MG/2 ML VIAL IVP ONE (22:30)
[2021-03-03] MEDS ORDERED: SODIUM CHLORIDE 0.9% 100 ML ONE (23:03)
[2021-03-03] MEDS ORDERED: IOHEXOL 350 MG/ML 100 ML VIAL ONE (23:03)
[2021-03-04] VITALS: BP 132/79
== END 2021-03-04 00:44 | disposition home or self-care (01) ==
LOC: EMS 19:58
DX: K52.9 Noninfective gastroenteritis and colitis, unspecified (principal); E11.9 Type 2 diabetes mellitus without complications; E78.00 Pure hypercholesterolemia, unspecified; I10 Essential (primary) hypertension; Z20.822 Contact with and (suspected) exposure to COVID-19; Z79.84 Long term (current) use of oral hypoglycemic drugs; Z79.899 Other long term (current) drug therapy; Z88.6 Allergy status to analgesic agent
CPT/HCPCS: 36415; 74177; 80053; 82962; 83690; 84702; 84703; 85025; 87426; 96361; 96374; 96375; 99285; J2405; J3490; J7030; J7050; Q9967; U0003

== ENCOUNTER 2021-03-25 16:03 | Emergency (ER) | payer MEDICAID ==
[~2021-03-25] VITALS: Ht 157.5 cm; Wt 116.4 kg
[2021-03-25 16:19] VITALS: BP 182/75
== END 2021-03-25 16:57 | disposition home or self-care (01) ==
LOC: EMS 16:04
DX: H60.92 Unspecified otitis externa, left ear (principal); E11.9 Type 2 diabetes mellitus without complications; E78.00 Pure hypercholesterolemia, unspecified; I10 Essential (primary) hypertension; Z90.89 Acquired absence of other organs; Z88.6 Allergy status to analgesic agent; Z79.84 Long term (current) use of oral hypoglycemic drugs
CPT/HCPCS: 99283; Z7502

== ENCOUNTER 2021-04-14 18:01 | Emergency (ER) | payer MEDICAID ==
[~2021-04-14] VITALS: Ht 157.5 cm; Wt 116.4 kg
[2021-04-14] MEDS ORDERED: AMOX TR/POT CLAV 875 MG/125 MG TABLET PO ONE (19:00)
[2021-04-14] MEDS ORDERED: ACETAMINOPHEN 325 MG TABLET PO ONE (19:00)
[2021-04-14 20:09] VITALS: BP 180/105
== END 2021-04-14 22:29 | disposition home or self-care (01) ==
LOC: EMS 18:04
DX: L03.113 Cellulitis of right upper limb (principal); I10 Essential (primary) hypertension; E78.00 Pure hypercholesterolemia, unspecified; E11.9 Type 2 diabetes mellitus without complications; Z79.899 Other long term (current) drug therapy; Z79.84 Long term (current) use of oral hypoglycemic drugs; Z88.6 Allergy status to analgesic agent
CPT/HCPCS: 82962; 99283

== ENCOUNTER 2021-05-05 18:42 | Emergency (ER) | payer MEDICAID ==
[~2021-05-05] VITALS: Ht 157.5 cm; Wt 116.4 kg
[2021-05-05 19:50] LABS: BASOPHILS % (AUTO) 1.5 % (0.0-2.0); HEMATOCRIT 40.6 % (36-46); HEMOGLOBIN 13.6 g/dL (12.0-16.0); LYMPHOCYTES % (AUTO) 27.5 % (22.0-44.0); MEAN CORPUSCULAR HEMOGLOBIN 27.7 pg (26.0-34.0); MEAN CORPUSCULAR HGB CONC 33.6 G/dL (31.0-37.0); MEAN CORPUSCULAR VOLUME 82 fL (80-100); MONOCYTES # (AUTO) 0.3 K/uL (0.1-1.0); MONOCYTES % (AUTO) 3.7 % (2.0-9.0); NEUTROPHILS # (AUTO) 4.7 K/uL (1.8-7.7); NEUTROPHILS % (AUTO) 65.3 % (40.0-70.0); PLATELET COUNT (AUTO) 301 K/uL (150-450); RED BLOOD CELL COUNT(AUTO) 4.92 MIL/uL (4.00-5.20); RED CELL DISTRIBUTION WIDTH 15.5 % (11.5-14.5)
[2021-05-05 20:06] LABS: ALANINE AMINOTRANSFERASE 17 U/L (12-78); ALBUMIN 3.1 g/dL (3.4-5.0); ALKALINE PHOSPHATASE 131 U/L (46-116); ANION GAP 11 mmol/L (8-16); ASPARTATE AMINOTRANSFERASE 17 U/L (15-37); BILIRUBIN,TOTAL 0.3 mg/dL (0.1-1.0); CALCIUM, TOTAL 9.3 mg/dL (8.8-10.5); CARBON DIOXIDE 27 mmol/L (22-29); CHLORIDE 102 mmol/L (98-107); CREATININE 1.02 mg/dL (0.60-1.30); GLOMERULAR FILTR. RATE CALC > 60 mL/min (>60); LIPASE 114 U/L (73-393); POTASSIUM 3.7 mmol/L (3.5-5.1); SODIUM SERUM 140 mmol/L (136-145); TOTAL PROTEIN, SERUM 7.2 g/dL (6.4-8.2); UREA NITROGEN, BLOOD 15 mg/dL (7-18)
[2021-05-05 20:08] LABS: GLUCOSE,RANDOM 455 mg/dL (70-110)
[2021-05-05] MEDS: ACETAMINOPHEN 500 MG TABLET PO ONE (20:30)
[2021-05-05] MEDS: SODIUM CHLORIDE 0.9% 2,000 ML IV ONE (20:30)
[2021-05-05] MEDS: INSULIN REGULAR, HUMAN 100 UNITS/ML IVP ONE (20:30)
[2021-05-05] MEDS: AmLODIPine BESYLATE 5 MG TABLET PO ONE (23:02)
[2021-05-06 00:46] LABS: APPEARANCE,URINE CLEAR (CLEAR); BILIRUBIN,URINE NEGATIVE (NEGATIVE); GLUCOSE, URINE (UA) >=1000 mg/dL (NEGATIVE); KETONES,URINE NEGATIVE (NEGATIVE); LEUKOCYTE ESTERASE ,URINE NEGATIVE (NEGATIVE); NITRATE,URINE NEGATIVE (NEGATIVE); OCCULT BLOOD,URINE LARGE (NEGATIVE); PROTEIN,URINE NEGATIVE (NEGATIVE); UROBILINOGEN,URINE 0.2 mg/dL (<=1.0)
[2021-05-06 00:50] VITALS: BP 154/72
[2021-05-06 01:26] LABS: SQUAMOUS EPITHELIAL CELL,UR Many /LPF (None Seen)
[2021-05-06 01:27] LABS: WBC,URINE 0-2 /HPF (0-5)
[2021-05-06 01:28] LABS: BACTERIA,URINE None Seen /HPF (None Seen)
[2021-05-06 01:46] LABS: GLUCOMETER DEV NAME(LOC) ERT.5; GLUCOSE,POINT OF CARE 138 MG/DL (70-110)
== END 2021-05-06 02:01 | disposition home or self-care (01) ==
LOC: EMS 19:19
DX: E11.65 Type 2 diabetes mellitus with hyperglycemia (principal); I10 Essential (primary) hypertension; E78.00 Pure hypercholesterolemia, unspecified; Z88.8 Allergy status to other drugs, medicaments and biological substances; Z79.84 Long term (current) use of oral hypoglycemic drugs
CPT/HCPCS: 36415; 80053; 81001; 82962; 83690; 84484; 84703; 85025; 93005; 96361; 96374; 99284; J1815

== ENCOUNTER 2021-06-11 22:42 | Emergency (ER) | payer MEDICAID ==
[~2021-06-11] VITALS: Ht 157.5 cm; Wt 113.0 kg
[2021-06-11] MEDS ORDERED: CEPHALEXIN MONOHYDRATE 500 MG CAPSULE PO ONE (23:30)
[2021-06-11] MEDS ORDERED: ACETAMINOPHEN 500 MG TABLET PO ONE (23:30)
[2021-06-11] MEDS ORDERED: PERTUSS(ACELL),DIPH,TET VAC/PF 0.5 ML SYRINGE IM. ONE (23:45)
[2021-06-11] MEDS ORDERED: CEPH500C3 PO (23:50)
[2021-06-12] VITALS: BP 132/88
== END 2021-06-12 02:36 | disposition home or self-care (01) ==
LOC: EMS 22:47
DX: S90.812A Abrasion, left foot, initial encounter (principal); I10 Essential (primary) hypertension; E78.00 Pure hypercholesterolemia, unspecified; E11.9 Type 2 diabetes mellitus without complications; Z88.6 Allergy status to analgesic agent; Z79.899 Other long term (current) drug therapy; W22.8XXA Striking against or struck by other objects, initial encounter; Y93.89 Activity, other specified; Y92.89 Other specified places as the place of occurrence of the external cause; Y99.8 Other external cause status
CPT/HCPCS: 90471; 90715; 99283

== ENCOUNTER 2021-06-16 21:03 | Emergency (ER) | payer MEDICAID ==
[~2021-06-16] VITALS: Ht 157.5 cm; Wt 112.0 kg
[~2021-06-16 21:03] MED LIST changes: +CEPH500C3 PO
[2021-06-16 21:09] VITALS: BP 168/84
== END 2021-06-16 21:37 | disposition home or self-care (01) ==
LOC: EMS 21:05
DX: L53.9 Erythematous condition, unspecified (principal); E11.9 Type 2 diabetes mellitus without complications; E78.00 Pure hypercholesterolemia, unspecified; I10 Essential (primary) hypertension; Z90.89 Acquired absence of other organs; Z88.6 Allergy status to analgesic agent; Z79.4 Long term (current) use of insulin; Z79.84 Long term (current) use of oral hypoglycemic drugs
CPT/HCPCS: 82962; 99284

== ENCOUNTER 2022-02-19 18:03 | Emergency (ER) | payer MEDICAID ==
[~2022-02-19] VITALS: Ht 167.6 cm; Wt 100.0 kg
[~2022-02-19 18:03] MED LIST changes: +CEPH-558 PO; -CEPH500C3 PO
[2022-02-19 23:30] VITALS: BP 144/80
== END 2022-02-19 23:30 | disposition home or self-care (01) ==
LOC: EMS 18:03
DX: S80.02XA Contusion of left knee, initial encounter (principal); M25.572 Pain in left ankle and joints of left foot; E11.9 Type 2 diabetes mellitus without complications; E78.00 Pure hypercholesterolemia, unspecified; I10 Essential (primary) hypertension; Z90.49 Acquired absence of other specified parts of digestive tract; Z98.890 Other specified postprocedural states; Z88.6 Allergy status to analgesic agent; W22.8XXA Striking against or struck by other objects, initial encounter; Y93.89 Activity, other specified; Y92.89 Other specified places as the place of occurrence of the external cause; Y99.8 Other external cause status
CPT/HCPCS: 82962; 99284

== ENCOUNTER 2022-07-04 13:42 | Emergency (ER) | payer MEDICAID, OTHER ==
[~2022-07-04] VITALS: Ht 157.5 cm; Wt 113.8 kg
[2022-07-04 18:50] LABS: BASOPHILS % (AUTO) 1.1 % (0.0-2.0); EOSINOPHILS % (AUTO) 2.2 % (1.0-6.0); HEMATOCRIT 44.5 % (36-46); HEMOGLOBIN 14.2 g/dL (12.0-16.0); LYMPHOCYTES % (AUTO) 25.3 % (22.0-44.0); MEAN CORPUSCULAR HEMOGLOBIN 26.4 pg (26.0-34.0); MEAN CORPUSCULAR HGB CONC 31.9 G/dL (31.0-37.0); MEAN CORPUSCULAR VOLUME 83 fL (80-100); MONOCYTES # (AUTO) 0.4 K/uL (0.1-1.0); MONOCYTES % (AUTO) 4.7 % (2.0-9.0); NEUTROPHILS # (AUTO) 5.2 K/uL (1.8-7.7); NEUTROPHILS % (AUTO) 66.7 % (40.0-70.0); PLATELET COUNT (AUTO) 339 K/uL (150-450); RED BLOOD CELL COUNT(AUTO) 5.38 MIL/uL (4.00-5.20); RED CELL DISTRIBUTION WIDTH 15.5 % (11.5-14.5)
[2022-07-04 18:57] LABS: PROTHROMBIN TIME 10.6 SEC (9.4-11.6)
[2022-07-04 19:00] LABS: ANION GAP 11 mmol/L (8-16); CARBON DIOXIDE 29 mmol/L (22-29); CHLORIDE 100 mmol/L (98-107); CREATININE 0.74 mg/dL (0.60-1.30); GLOMERULAR FILTR. RATE CALC > 60 mL/min (>60); GLUCOSE,RANDOM 302 mg/dL (70-110); SODIUM SERUM 140 mmol/L (136-145); UREA NITROGEN, BLOOD 10 mg/dL (7-18)
[2022-07-04 19:06] LABS: ALANINE AMINOTRANSFERASE 22 U/L (12-78); ALBUMIN 3.6 g/dL (3.4-5.0); ALKALINE PHOSPHATASE 155 U/L (46-116); ASPARTATE AMINOTRANSFERASE 22 U/L (15-37); BILIRUBIN,TOTAL 0.3 mg/dL (0.1-1.0); TOTAL PROTEIN, SERUM 7.8 g/dL (6.4-8.2)
[2022-07-04 19:47] LABS: COVID AG,FIA SOURCE NASAL SWAB
[2022-07-04 20:16] LABS: INFLUENZA TYPE A NEGATIVE FOR TYPE A (NEGATIVE); INFLUENZA TYPE B NEGATIVE FOR TYPE B (NEGATIVE)
[2022-07-04 20:54] VITALS: BP 119/69
== END 2022-07-04 21:10 | disposition home or self-care (01) ==
LOC: EMS 13:49
DX: R42 Dizziness and giddiness (principal); E11.65 Type 2 diabetes mellitus with hyperglycemia; E78.00 Pure hypercholesterolemia, unspecified; I10 Essential (primary) hypertension; Z90.49 Acquired absence of other specified parts of digestive tract; Z98.890 Other specified postprocedural states; Z88.6 Allergy status to analgesic agent; Z20.822 Contact with and (suspected) exposure to COVID-19
CPT/HCPCS: 71045; 80053; 82962; 84484; 85025; 85610; 85730; 87804; 93005; 99285; 36415-L1; 36415-TC

== ENCOUNTER 2022-12-08 23:18 | Emergency (ER) | payer OTHER ==
[~2022-12-08] VITALS: Ht 157.5 cm; Wt 113.6 kg
[~2022-12-08 23:18] MED LIST changes: -CEPH-558 PO
[2022-12-08 23:22] VITALS: TEMP 98.7
[2022-12-09 00:26] LABS: ANION GAP 9 mmol/L (8-16); CARBON DIOXIDE 30 mmol/L (22-29); CHLORIDE 100 mmol/L (98-107); CREATININE 0.77 mg/dL (0.60-1.30); GLOMERULAR FILTR. RATE CALC > 60 mL/min (>60); GLUCOSE,RANDOM 353 mg/dL (70-110); POTASSIUM 3.9 mmol/L (3.5-5.1); SODIUM SERUM 139 mmol/L (136-145)
[2022-12-09 00:28] LABS: EOSINOPHILS % (AUTO) 3.6 % (1.0-6.0); HEMATOCRIT 39.9 % (36-46); HEMOGLOBIN 12.9 g/dL (12.0-16.0); LYMPHOCYTES # (AUTO) 1.5 K/uL (1.0-4.8); LYMPHOCYTES % (AUTO) 30.2 % (22.0-44.0); MEAN CORPUSCULAR HEMOGLOBIN 26.9 pg (26.0-34.0); MEAN CORPUSCULAR HGB CONC 32.3 G/dL (31.0-37.0); MEAN CORPUSCULAR VOLUME 83 fL (80-100); MONOCYTES # (AUTO) 0.4 K/uL (0.1-1.0); MONOCYTES % (AUTO) 7.3 % (2.0-9.0); NEUTROPHILS # (AUTO) 2.9 K/uL (1.8-7.7); NEUTROPHILS % (AUTO) 57.9 % (40.0-70.0); PLATELET COUNT (AUTO) 300 K/uL (150-450); RED BLOOD CELL COUNT(AUTO) 4.79 MIL/uL (4.00-5.20); RED CELL DISTRIBUTION WIDTH 16.5 % (11.5-14.5)
[2022-12-09 00:39] LABS: ALANINE AMINOTRANSFERASE 19 U/L (12-78); ALBUMIN 3.1 g/dL (3.4-5.0); ALKALINE PHOSPHATASE 137 U/L (46-116); ASPARTATE AMINOTRANSFERASE 20 U/L (15-37); BILIRUBIN,TOTAL 0.2 mg/dL (0.1-1.0); CREATINE KINASE, TOTAL ONLY 50 U/L (26-192); TOTAL PROTEIN, SERUM 6.9 g/dL (6.4-8.2)
[2022-12-09 00:52] LABS: B-TYPE NATRIURETIC PEPTIDE < 5 pg/mL (0-100)
[2022-12-09] MEDS ORDERED: INSULIN REGULAR, HUMAN 100 UNITS/ML SQ ONE (01:45)
[2022-12-09 01:53] VITALS: BP 143/70; PULSE 88; RESP 18
== END 2022-12-09 02:40 | disposition home or self-care (01) ==
LOC: EMS 23:18
DX: E11.65 Type 2 diabetes mellitus with hyperglycemia (principal); E78.00 Pure hypercholesterolemia, unspecified; I10 Essential (primary) hypertension; Z90.49 Acquired absence of other specified parts of digestive tract; Z98.890 Other specified postprocedural states; Z88.6 Allergy status to analgesic agent
CPT/HCPCS: 99285; 71045; 80053; 82550; 82962 ×2; 83880; 84484; 85025; 36415; 93005; 96372; J1815

== ENCOUNTER 2024-01-12 11:52 | Emergency (ER) | payer OTHER ==
[~2024-01-12] VITALS: Ht 160 cm; Wt 90.5 kg
[~2024-01-12 11:52] MED LIST changes: +AMLO10TA55 PO; +ATOR40TA71 PO; +CETI10TA58 PO; +GLIP5TAB15 PO; -LISI-894 PO; +LISI40TA9 PO; +METO25XL PO; -SITA100 PO
[2024-01-12 11:55] VITALS: TEMP 97.9
[2024-01-12] MEDS ORDERED: ASPI-1444 PO (11:58)
[2024-01-12] MEDS: ACETAMINOPHEN 325 MG TABLET PO ONE (13:31)
[2024-01-12 16:18] VITALS: BP 133/74; PULSE 78; RESP 16; O2SAT 100
== END 2024-01-12 16:24 | disposition home or self-care (01) ==
LOC: EMS 11:52
DX: S90.32XA Contusion of left foot, initial encounter (principal); E11.9 Type 2 diabetes mellitus without complications; I10 Essential (primary) hypertension; Z88.6 Allergy status to analgesic agent; W22.8XXA Striking against or struck by other objects, initial encounter; Y93.89 Activity, other specified; Y92.89 Other specified places as the place of occurrence of the external cause; Y99.8 Other external cause status
CPT/HCPCS: 82962; 99283

== ENCOUNTER 2024-10-25 07:49 | Inpatient (IN) | payer MEDICAID, OTHER ==
[~2024-10-25] VITALS: Ht 157.5 cm; Wt 81.8 kg
[~2024-10-25 07:49] MED LIST changes: -AMLO10TA55 PO; +ASPI-1444 PO; -ATOR40TA71 PO; -CETI10TA58 PO; -INSLAN SQ; +LISI-1024 PO; -LISI40TA9 PO; -METO25XL PO
[2024-10-25 08:45] LABS: PLATELET COUNT (AUTO) 268 K/uL (150-450); RED BLOOD CELL COUNT(AUTO) 4.44 MIL/uL (4.00-5.20); RED CELL DISTRIBUTION WIDTH 14.5 % (11.5-14.5); WHITE BLOOD COUNT (AUTO) 4.6 K/uL (4.5-11.0)
[2024-10-25 08:57] LABS: APPEARANCE,URINE HAZY (CLEAR); GLUCOSE, URINE (UA) >=1000 mg/dL (NEGATIVE); LEUKOCYTE ESTERASE ,URINE LARGE (NEGATIVE); NITRATE,URINE NEGATIVE (NEGATIVE); OCCULT BLOOD,URINE NEGATIVE (NEGATIVE); SPECIFIC GRAVITIY, URINE 1.029 (1.003-1.030)
[2024-10-25 09:00] LABS: CALCIUM, TOTAL 8.8 mg/dL (8.8-10.5); CREATININE 0.77 mg/dL (0.60-1.30); GLOMERULAR FILTR. RATE CALC > 60 mL/min (>60); GLUCOSE,RANDOM 250 mg/dL (70-110); SODIUM SERUM 142 mmol/L (136-145); UREA NITROGEN, BLOOD 10 mg/dL (7-18)
[2024-10-25 09:07] LABS: SQUAMOUS EPITHELIAL CELL,UR Moderate /LPF (None Seen)
[2024-10-25] MEDS: SODIUM CHLORIDE 0.9% 1,000 ML IV ONE ×2 (09:08→19:53)
[2024-10-25 09:09] LABS: TROPONIN I-HIGH SENSITIVITY 8 ng/L (<51)
[2024-10-25] MEDS: CefTRIAXone 1 GM/DEXTROSE 50 ML IV ONE (09:44)
[2024-10-25] MEDS ORDERED: METF750T57 PO (12:37)
[2024-10-25] MEDS ORDERED: ASPI-1198 PO (12:37)
[2024-10-25] MEDS ORDERED: LISI20TA24 PO (12:37)
[2024-10-25] MEDS ORDERED: ZOLPIDEM TARTRATE 5 MG TABLET PO PRN (14:15)
[2024-10-25] MEDS ORDERED: MAGNESIUM HYDROXIDE SUSPENSION 30 ML UDCUP PO PRN (14:15)
[2024-10-25] MEDS ORDERED: MORPHINE SULFATE 2 MG/ML SYRINGE IVP PRN (14:15)
[2024-10-25] MEDS ORDERED: BISACODYL 10 MG RECTAL RECTAL SUPPOSITORY PR PRN (14:15)
[2024-10-25] MEDS ORDERED: HYDROCODONE/ACETAMINOPHEN 5-325 MG TABLET PO PRN (14:15)
[2024-10-25] MEDS ORDERED: ACETAMINOPHEN 325 MG TABLET PO PRN (14:15)
[2024-10-25] MEDS: HEPARIN SODIUM,PORCINE 5,000 UNITS/ML VIAL SQ SCH (16:10)
[2024-10-25 16:30] VITALS: BP 149/93; PULSE 16; RESP 16; TEMP 97.3; O2SAT 0
[2024-10-25] MEDS: MetFORMIN HCL 750 MG ER TABLET PO SCH (18:00)
[2024-10-25] MEDS: DOCUSATE SODIUM 100 MG CAPSULE PO SCH (19:52)
[2024-10-25 19:59] VITALS: BP 151/87; PULSE 67; RESP 18; TEMP 97.3; O2SAT 100
[2024-10-26 02:05] LABS: GLUCOMETER DEV NAME(LOC) 6S.2; GLUCOSE,POINT OF CARE 126 MG/DL (70-110)
[2024-10-26 03:07] LABS: HEPATITIS C AB (EIA) Non Reactive (Non Reactive)
[2024-10-26 03:37] VITALS: BP 146/88; PULSE 71; RESP 18; TEMP 98.1; O2SAT 100
[2024-10-26 06:24] LABS: PLATELET COUNT (AUTO) 279 K/uL (150-450); RED BLOOD CELL COUNT(AUTO) 4.70 MIL/uL (4.00-5.20); RED CELL DISTRIBUTION WIDTH 14.6 % (11.5-14.5); WHITE BLOOD COUNT (AUTO) 4.9 K/uL (4.5-11.0)
[2024-10-26 06:29] LABS: CALCIUM, TOTAL 9.3 mg/dL (8.8-10.5); CREATININE 0.70 mg/dL (0.60-1.30); GLOMERULAR FILTR. RATE CALC > 60 mL/min (>60); GLUCOSE,RANDOM 197 mg/dL (70-110); SODIUM SERUM 137 mmol/L (136-145); UREA NITROGEN, BLOOD 8 mg/dL (7-18)
[2024-10-26 07:57] VITALS: BP 139/95; PULSE 74; RESP 18; TEMP 97.9; O2SAT 100
[2024-10-26] MEDS: PANTOPRAZOLE SODIUM 40 MG DR TABLET PO SCH (08:18)
[2024-10-26] MEDS: ASPIRIN 81 MG CHEWABLE TABLET PO SCH (08:20)
[2024-10-26] MEDS: CefTRIAXone 1 GM/DEXTROSE 50 ML IV SCH (08:20)
[2024-10-26 08:50] LABS: PLATELET COUNT (AUTO) 281 K/uL (150-450); RED BLOOD CELL COUNT(AUTO) 4.58 MIL/uL (4.00-5.20); RED CELL DISTRIBUTION WIDTH 14.4 % (11.5-14.5); WHITE BLOOD COUNT (AUTO) 4.7 K/uL (4.5-11.0)
[2024-10-26 09:01] LABS: CALCIUM, TOTAL 9.0 mg/dL (8.8-10.5); CREATININE 0.74 mg/dL (0.60-1.30); GLOMERULAR FILTR. RATE CALC > 60 mL/min (>60); GLUCOSE,RANDOM 138 mg/dL (70-110); SODIUM SERUM 138 mmol/L (136-145); UREA NITROGEN, BLOOD 8 mg/dL (7-18)
[2024-10-26 09:05] LABS: ASPARTATE AMINOTRANSFERASE 16 U/L (15-37); CHOL/HDL RATIO 3.7 (3.9-5.7); LDL CHOL (CALC.) 105 mg/dL (0-130); TOTAL PROTEIN, SERUM 6.6 g/dL (6.4-8.2)
[2024-10-26 09:10] LABS: TROPONIN I-HIGH SENSITIVITY 6 ng/L (<51)
[2024-10-26] MEDS ORDERED: CefTRIAXone 1 GM/DEXTROSE 50 ML IV SCH (10:15)
[2024-10-26 11:45] LABS: GLUCOMETER DEV NAME(LOC) 6S.1D; GLUCOSE,POINT OF CARE 143 MG/DL (70-110)
[2024-10-26 19:40] VITALS: BP 155/89; PULSE 94; RESP 20; TEMP 97.9; O2SAT 97
[2024-10-26 21:04] VITALS: BP 151/93; PULSE 98; RESP 20; TEMP 97.5; O2SAT 98
[2024-10-27 04:18] VITALS: BP 150/83; PULSE 89; RESP 18; TEMP 97.7; O2SAT 99
[2024-10-27 08:01] VITALS: BP 151/82; PULSE 87; RESP 18; TEMP 97.3; O2SAT 96
[2024-10-27 08:16] LABS: PLATELET COUNT (AUTO) 312 K/uL (150-450); RED BLOOD CELL COUNT(AUTO) 4.88 MIL/uL (4.00-5.20); RED CELL DISTRIBUTION WIDTH 14.3 % (11.5-14.5); WHITE BLOOD COUNT (AUTO) 6.2 K/uL (4.5-11.0)
[2024-10-27 08:32] LABS: CALCIUM, TOTAL 9.7 mg/dL (8.8-10.5); CREATININE 0.80 mg/dL (0.60-1.30); GLOMERULAR FILTR. RATE CALC > 60 mL/min (>60); GLUCOSE,RANDOM 305 mg/dL (70-110); SODIUM SERUM 139 mmol/L (136-145); UREA NITROGEN, BLOOD 10 mg/dL (7-18)
[2024-10-27] MEDS: ATORVASTATIN CALCIUM 20 MG TABLET PO SCH (09:04)
[2024-10-27] MEDS ORDERED: SODIUM CHLORIDE 0.9% 500 ML IV ONE (11:24)
[2024-10-27] MEDS: ONDANSETRON HCL 4 MG/2 ML VIAL IVP PRN (11:38)
[2024-10-27 15:45] VITALS: BP 158/86; PULSE 80; RESP 18; TEMP 97.5; O2SAT 99
[2024-10-27 19:47] VITALS: BP 156/66; PULSE 70; RESP 18; TEMP 97.9; O2SAT 98
[2024-10-28 04:26] VITALS: BP 159/99; PULSE 64; RESP 18; TEMP 97.5; O2SAT 99
[2024-10-28 06:37] LABS: PLATELET COUNT (AUTO) 295 K/uL (150-450); RED BLOOD CELL COUNT(AUTO) 4.67 MIL/uL (4.00-5.20); RED CELL DISTRIBUTION WIDTH 14.2 % (11.5-14.5); WHITE BLOOD COUNT (AUTO) 7.5 K/uL (4.5-11.0)
[2024-10-28 06:49] LABS: CALCIUM, TOTAL 9.3 mg/dL (8.8-10.5); CREATININE 0.73 mg/dL (0.60-1.30); GLOMERULAR FILTR. RATE CALC > 60 mL/min (>60); GLUCOSE,RANDOM 115 mg/dL (70-110); SODIUM SERUM 143 mmol/L (136-145); UREA NITROGEN, BLOOD 11 mg/dL (7-18)
[2024-10-28 07:52] VITALS: BP 161/75; PULSE 68; RESP 18; TEMP 98.2; O2SAT 99
[2024-10-28 11:26] VITALS: BP 156/99; PULSE 71; RESP 18; TEMP 98.4; O2SAT 97
[2024-10-28] MEDS ORDERED: CEPH-558 PO (14:04)
[2024-10-28] MEDS ORDERED: PANT-31 PO (14:04)
[2024-10-28] MEDS ORDERED: VALA500T PO (14:04)
[2024-10-28] MEDS ORDERED: AMLO-257 PO (14:08)
== END 2024-10-28 16:16 | disposition home or self-care (01) | DRG 48 ==
LOC: EMS 08:10 → EDH 12:13 → 6S 14:55 → 4E 10-26 20:43
PROVIDERS: ADMIT Internal Medicine; ATTEND Internal Medicine
DX: G90.89 Other disorders of autonomic nervous system (principal); E11.9 Type 2 diabetes mellitus without complications; N39.0 Urinary tract infection, site not specified; G51.0 Bell's palsy; I25.10 Atherosclerotic heart disease of native coronary artery without angina pectoris; I10 Essential (primary) hypertension; E78.5 Hyperlipidemia, unspecified; Z88.6 Allergy status to analgesic agent; Z95.5 Presence of coronary angioplasty implant and graft; Z79.84 Long term (current) use of oral hypoglycemic drugs; Z79.82 Long term (current) use of aspirin; Z79.899 Other long term (current) drug therapy; I69.341 Monoplegia of lower limb following cerebral infarction affecting right dominant side
CPT/HCPCS: 70450; 70496; 70498; 70551; 71045; 80048; 80053; 80061; 81001; 82962; 83036; 83880; 84484; 85025; 85610; 85730; 86803; 87040; 87086; 87340; 92610; 93005; 96365; 97116; 97161; 97166; 97535; 99285; G0378; J0696; J1644; J2405; J7030; J7040; J7509; 36415-L1; 36415-TC

== ENCOUNTER 2025-01-26 20:46 | Emergency (ER) | payer MEDICAID, OTHER ==
[~2025-01-26] VITALS: Ht 157.5 cm; Wt 81.8 kg
[~2025-01-26 20:46] MED LIST changes: +AMLO-257 PO; +ASPI-1198 PO; -ASPI-1444 PO; +CEPH-558 PO; -LISI-1024 PO; +LISI20TA24 PO; -METF-1211 PO; +METF750T57 PO; +PANT-31 PO; +VALA500T PO
[2025-01-26 21:16] LABS: COVID AG,FIA SOURCE NASAL SWAB
[2025-01-26 21:24] LABS: INFLUENZA TYPE A NEGATIVE FOR TYPE A (NEGATIVE); INFLUENZA TYPE B NEGATIVE FOR TYPE B (NEGATIVE)
[2025-01-26 21:25] LABS: SARS-COV2 (COVID) ANTIGEN,FIA Negative (Negative)
[2025-01-26 22:24] LABS: PLATELET COUNT (AUTO) 292 K/uL (150-450); RED BLOOD CELL COUNT(AUTO) 4.62 MIL/uL (4.00-5.20); RED CELL DISTRIBUTION WIDTH 16.1 % (11.5-14.5); WHITE BLOOD COUNT (AUTO) 5.4 K/uL (4.5-11.0)
[2025-01-26 22:33] LABS: CALCIUM, TOTAL 8.9 mg/dL (8.8-10.5); CREATININE 0.61 mg/dL (0.60-1.30); GLOMERULAR FILTR. RATE CALC > 60 mL/min (>60); GLUCOSE,RANDOM 145 mg/dL (70-110); SODIUM SERUM 144 mmol/L (136-145); UREA NITROGEN, BLOOD 9 mg/dL (7-18)
[2025-01-26 22:43] LABS: ASPARTATE AMINOTRANSFERASE 19.0 U/L (15-37); TOTAL PROTEIN, SERUM 6.9 g/dL (6.4-8.2)
[2025-01-26 23:21] VITALS: TEMP 98.105288
[2025-01-27] MEDS ORDERED: ONDA-104 PO (00:10)
[2025-01-27 00:15] VITALS: BP 146/84; PULSE 82; RESP 16; O2SAT 100
[2025-01-27] MEDS: ONDANSETRON 4 MG TABLET PO ONE (00:23)
== END 2025-01-27 00:25 | disposition home or self-care (01) ==
LOC: EMS 20:46
DX: K52.9 Noninfective gastroenteritis and colitis, unspecified (principal); R11.2 Nausea with vomiting, unspecified; E11.9 Type 2 diabetes mellitus without complications; I11.9 Hypertensive heart disease without heart failure; Z79.624 Long term (current) use of inhibitors of nucleotide synthesis; Z79.82 Long term (current) use of aspirin; Z79.84 Long term (current) use of oral hypoglycemic drugs; Z79.899 Other long term (current) drug therapy; Z88.6 Allergy status to analgesic agent; Z91.0110 Allergy to milk products, unspecified; Z98.890 Other specified postprocedural states; Z20.822 Contact with and (suspected) exposure to COVID-19
CPT/HCPCS: 99283; 87426; 80048; 80076; 82962; 83690; 85025; 87804; 36415; Q0162